=== PATIENT | male | born 1975 | race Two or more races ===

== ENCOUNTER → 2024-01-12 | Emergency (ER) | payer SELFPAY ==
[~2024-01-12] VITALS: Ht 154.9 cm; Wt 68.1 kg
[2024-01-12 17:12] VITALS: BP 162/84; PULSE 76; RESP 16; TEMP 97.2
== END | disposition still patient (30) ==
LOC: EMS 17:06
DX: M79.672 Pain in left foot (principal); Z53.21 Procedure and treatment not carried out due to patient leaving prior to being seen by health care provider

== ENCOUNTER 2024-03-05 18:34 | Emergency (ER) | payer OTHER ==
[~2024-03-05 18:34] MED LIST: ACET-3385 PO; AMLO5TAB66 PO; ASPI-1444 PO; BACI28.410 TP; IBUP-1492 PO; LOSA1TAB37 PO
[2024-03-05 18:47] LABS: COVID AG,FIA SOURCE NASAL SWAB
[2024-03-05 19:06] LABS: SARS-COV2 (COVID) ANTIGEN,FIA Negative (Negative)
[2024-03-05 19:07] LABS: INFLUENZA TYPE A NEGATIVE FOR TYPE A (NEGATIVE); INFLUENZA TYPE B NEGATIVE FOR TYPE B (NEGATIVE)
[2024-03-05] MEDS: GuaiFENesin/D-METHORPHAN [SUGAR-FREE] 200-20MG/10 ML SYRUP UDCUP PO ONE (20:31)
[2024-03-05] MEDS: ACETAMINOPHEN 500 MG TABLET PO ONE (20:32)
[2024-03-05] MEDS ORDERED: ACET-66 PO (20:49)
[2024-03-05] MEDS ORDERED: IBUP-1554 PO (20:49)
[2024-03-05] MEDS ORDERED: GUAIFDM PO (20:49)
[2024-03-05 20:50] VITALS: BP 118/69; PULSE 78; RESP 18
== END 2024-03-05 21:07 | disposition home or self-care (01) ==
LOC: EMS 18:44
DX: J20.9 Acute bronchitis, unspecified (principal); J06.9 Acute upper respiratory infection, unspecified; Z20.822 Contact with and (suspected) exposure to COVID-19
CPT/HCPCS: 87804; 99283

== ENCOUNTER 2024-08-30 05:59 | Emergency (ER) | payer OTHER ==
[~2024-08-30] VITALS: Ht 170.2 cm; Wt 68.2 kg
[~2024-08-30 05:59] MED LIST changes: -ACET-3385 PO; +ACET-66 PO; -AMLO5TAB66 PO; -ASPI-1444 PO; -BACI28.410 TP; +GUAIFDM PO; -IBUP-1492 PO; +IBUP-1554 PO; -LOSA1TAB37 PO
[2024-08-30 06:31] VITALS: TEMP 98
[2024-08-30] MEDS: DOCUSATE SODIUM 100 MG CAPSULE PO ONE (06:55)
[2024-08-30 07:24] LABS: BASOPHILS % (AUTO) 0.9 % (0.0-2.0); EOSINOPHILS % (AUTO) 1.7 % (1.0-6.0); HEMATOCRIT 50.1 % (41-53); HEMOGLOBIN 16.9 g/dL (13.5-17.5); LYMPHOCYTES # (AUTO) 2.1 K/uL (1.0-4.8); LYMPHOCYTES % (AUTO) 28.7 % (22.0-44.0); MEAN CORPUSCULAR HEMOGLOBIN 31.2 pg (26.0-34.0); MEAN CORPUSCULAR HGB CONC 33.6 G/dL (31.0-37.0); MEAN CORPUSCULAR VOLUME 93 fL (80-100); MONOCYTES # (AUTO) 0.5 K/uL (0.1-1.0); MONOCYTES % (AUTO) 6.7 % (2.0-9.0); NEUTROPHILS # (AUTO) 4.6 K/uL (1.8-7.7); PLATELET COUNT (AUTO) 431 K/uL (150-450); RED CELL DISTRIBUTION WIDTH 13.3 % (11.5-14.5); WHITE BLOOD COUNT (AUTO) 7.5 K/uL (4.5-11.0)
[2024-08-30 07:35] LABS: ANION GAP 4 mmol/L (8-16); CALCIUM, TOTAL 8.9 mg/dL (8.8-10.5); CARBON DIOXIDE 32 mmol/L (22-29); CHLORIDE 99 mmol/L (98-107); CREATININE 1.02 mg/dL (0.60-1.30); GLOMERULAR FILTR. RATE CALC > 60 mL/min (>60); GLUCOSE,RANDOM 99 mg/dL (70-110); POTASSIUM 3.8 mmol/L (3.5-5.1); SODIUM SERUM 135 mmol/L (136-145); UREA NITROGEN, BLOOD 9 mg/dL (7-18)
[2024-08-30 07:41] LABS: ALANINE AMINOTRANSFERASE 44 U/L (12-78); ALBUMIN 4.1 g/dL (3.4-5.0); ALKALINE PHOSPHATASE 110 U/L (46-116); ASPARTATE AMINOTRANSFERASE 21 U/L (15-37); BILIRUBIN,TOTAL 0.4 mg/dL (0.1-1.0); LIPASE 35 U/L (16-77)
[2024-08-30] MEDS ORDERED: DOCU-385 PO (07:50)
[2024-08-30 08:12] LABS: APPEARANCE,URINE CLEAR (CLEAR); BILIRUBIN,URINE NEGATIVE (NEGATIVE); COLOR,URINE COLORLESS (YELLOW); GLUCOSE, URINE (UA) NEGATIVE (NEGATIVE); KETONES,URINE NEGATIVE (NEGATIVE); LEUKOCYTE ESTERASE ,URINE NEGATIVE (NEGATIVE); NITRATE,URINE NEGATIVE (NEGATIVE); OCCULT BLOOD,URINE NEGATIVE (NEGATIVE); PH,URINE 7.5 (5.0-8.0); PROTEIN,URINE NEGATIVE (NEGATIVE); SPECIFIC GRAVITIY, URINE 1.004 (1.003-1.030); UROBILINOGEN,URINE <=1.0 mg/dL (<=1.0)
[2024-08-30 08:19] LABS: ALCOHOL, BLOOD (SERUM) < 3 mg/dL (0-10)
[2024-08-30 08:29] VITALS: BP 128/85; PULSE 79; RESP 18; O2SAT 100
== END 2024-08-30 08:30 | disposition home or self-care (01) ==
LOC: EMS 06:00
DX: K59.00 Constipation, unspecified (principal)
CPT/HCPCS: 99283; 80048; 80076; 81003; 83690; 85025; 36415; G0480